=== PATIENT | female | born 1980 | race Caucasian/White ===

== ENCOUNTER 2021-01-02 12:20 | Emergency (ER) | payer OTHER ==
[~2021-01-02] VITALS: Ht 152.4 cm; Wt 108.9 kg
== END 2021-01-02 16:27 | disposition left against medical advice (07) ==
LOC: ED 12:20
DX: R50.9 Fever, unspecified (principal); Z53.21 Procedure and treatment not carried out due to patient leaving prior to being seen by health care provider

== ENCOUNTER 2021-01-04 06:55 | Inpatient (IN) | payer OTHER ==
[~2021-01-04] VITALS: Ht 152.4 cm; Wt 106.8 kg
[2021-01-04 06:59] VITALS: BP 119/66
[2021-01-04 07:24] LABS: BASO % 0.2 % (0.0-1.0); HEMATOCRIT 43.1 % (37.0-47.0); LYMPH # 0.8 10*3/uL (1.3-4.4); LYMPH % 12.2 % (27.0-41.0); MEAN CORPUSCULAR HGB 27.9 pg (27.0-31.0); MEAN CORPUSCULAR HGB CONC 33.2 g/dl (33.0-37.0); MEAN PLATELET VOLUME 10.4 fl (9.6-12.3); MONO # 0.3 10*3/uL (0.1-1.0); NEUT # 5.3 10*3/uL (2.3-7.9); NEUT % 82.3 % (47.0-73.0); PLATELET COUNT AUTOMATED 189 10*3/uL (130-400); RED BLOOD COUNT 5.13 10*6/uL (4.10-5.10); RED CELL DISTRI WIDTH 12.7 % (0-14.5); WHITE BLOOD COUNT 6.4 10*3/uL (4.8-10.8)
[2021-01-04 07:42] LABS: ACT PARTIAL THROMBO TIME 28.6 SECONDS (20.0-32.1); ALKALINE PHOSPHATASE 50 U/L (45-117); BUN 13 mg/dl (7-24); CHLORIDE 106 mmol/L (98-107); CREATININE 0.74 mg/dL (0.55-1.02); LIPASE 43 U/L (73-393); POTASSIUM 3.6 mmol/L (3.5-5.1); SGOT/AST 45 IU/L (3-35); SGPT/ALT 81 U/L (12-78); SODIUM 138 mmol/L (136-145); TOTAL PROTEIN 7.5 gm/dL (6.4-8.2)
[2021-01-04 07:52] LABS: BETA-HCG, QUANT < 1.0 mIU/mL (1-3); TROPONIN I < 0.015 ng/ml (<0.045)
[2021-01-04 10:05] VITALS: BP 100/60
[2021-01-04 14:04] VITALS: BP 144/79
[2021-01-04 21:06] VITALS: BP 100/64
[2021-01-04] MEDS ORDERED: SERTRALINE HYD100 MG PO (21:07)
[2021-01-04 23:00] VITALS: BP 120/57
[2021-01-05 07:17] LABS: ALBUMIN 2.6 gm/dl (3.1-4.5); ALKALINE PHOSPHATASE 48 U/L (45-117); BUN 15 mg/dl (7-24); CHLORIDE 110 mmol/L (98-107); CREATININE 0.64 mg/dL (0.55-1.02); LDH 285 U/L (84-246); POTASSIUM 3.9 mmol/L (3.5-5.1); SGOT/AST 34 IU/L (3-35); SGPT/ALT 71 U/L (12-78); SODIUM 140 mmol/L (136-145); TOTAL PROTEIN 7.1 gm/dL (6.4-8.2)
[2021-01-05 07:18] LABS: BASO % 0.2 % (0.0-1.0); HEMATOCRIT 44.3 % (37.0-47.0); LYMPH # 0.8 10*3/uL (1.3-4.4); LYMPH % 15.2 % (27.0-41.0); MEAN CORPUSCULAR HGB 27.9 pg (27.0-31.0); MEAN CORPUSCULAR HGB CONC 31.8 g/dl (33.0-37.0); MEAN PLATELET VOLUME 10.8 fl (9.6-12.3); MONO # 0.4 10*3/uL (0.1-1.0); MONO % 8.5 % (3.0-9.0); NEUT # 3.8 10*3/uL (2.3-7.9); NEUT % 75.3 % (47.0-73.0); PLATELET COUNT AUTOMATED 221 10*3/uL (130-400); RED BLOOD COUNT 5.06 10*6/uL (4.10-5.10); RED CELL DISTRI WIDTH 13.1 % (0-14.5); WHITE BLOOD COUNT 5.1 10*3/uL (4.8-10.8)
[2021-01-05 07:20] LABS: MEAN CELL VOLUME 87.5 fl (81.0-99.0)
[2021-01-05 08:00] VITALS: BP 119/61
[2021-01-05 12:00] VITALS: BP 129/73
[2021-01-05 12:15] LABS: ABG BASE EXCESS 2.4 mmol/L (-2.0-2.0); ARTERIAL BLOOD GAS PH 7.46 (7.35-7.45); ARTERIAL BLOOD GAS PO2 57.5 (80-90)
[2021-01-05 16:00] VITALS: BP 112/68
[2021-01-05 20:00] VITALS: BP 97/67
[2021-01-06] VITALS: BP 109/70; BP 120/49
[2021-01-06 04:00] VITALS: BP 104/69
[2021-01-06 06:14] LABS: BASO % 0.1 % (0.0-1.0); HEMATOCRIT 43.8 % (37.0-47.0); LYMPH # 1.4 10*3/uL (1.3-4.4); MEAN CELL VOLUME 87.4 fl (81.0-99.0); MEAN CORPUSCULAR HGB 27.9 pg (27.0-31.0); MEAN PLATELET VOLUME 10.5 fl (9.6-12.3); MONO # 0.8 10*3/uL (0.1-1.0); MONO % 7.1 % (3.0-9.0); NEUT # 9.5 10*3/uL (2.3-7.9); NEUT % 79.9 % (47.0-73.0); PLATELET COUNT AUTOMATED 258 10*3/uL (130-400); RED BLOOD COUNT 5.01 10*6/uL (4.10-5.10); WHITE BLOOD COUNT 11.9 10*3/uL (4.8-10.8)
[2021-01-06 06:44] LABS: ALBUMIN 2.6 gm/dl (3.1-4.5); ALKALINE PHOSPHATASE 48 U/L (45-117); BUN 15 mg/dl (7-24); CHLORIDE 109 mmol/L (98-107); CREATININE 0.52 mg/dL (0.55-1.02); POTASSIUM 3.8 mmol/L (3.5-5.1); SGOT/AST 29 IU/L (3-35); SGPT/ALT 62 U/L (12-78); SODIUM 140 mmol/L (136-145); TOTAL PROTEIN 7.2 gm/dL (6.4-8.2)
[2021-01-06 08:00] VITALS: BP 125/72
[2021-01-06 12:00] VITALS: BP 98/56
[2021-01-06 16:00] VITALS: BP 105/66
[2021-01-06 20:00] VITALS: BP 97/60
[2021-01-07] VITALS: BP 102/60
[2021-01-07 04:00] VITALS: BP 90/70
[2021-01-07 07:59] LABS: BASO % 0.1 % (0.0-1.0); HEMATOCRIT 42.6 % (37.0-47.0); LYMPH # 1.8 10*3/uL (1.3-4.4); LYMPH % 25.3 % (27.0-41.0); MEAN CELL VOLUME 87.5 fl (81.0-99.0); MEAN CORPUSCULAR HGB 27.7 pg (27.0-31.0); MEAN CORPUSCULAR HGB CONC 31.7 g/dl (33.0-37.0); MONO # 0.7 10*3/uL (0.1-1.0); MONO % 9.4 % (3.0-9.0); NEUT # 4.4 10*3/uL (2.3-7.9); NEUT % 63.5 % (47.0-73.0); PLATELET COUNT AUTOMATED 289 10*3/uL (130-400); RED BLOOD COUNT 4.87 10*6/uL (4.10-5.10); RED CELL DISTRI WIDTH 12.8 % (0-14.5); WHITE BLOOD COUNT 6.9 10*3/uL (4.8-10.8)
[2021-01-07 08:00] VITALS: BP 128/48
[2021-01-07 08:17] LABS: ALBUMIN 2.5 gm/dl (3.1-4.5); ALKALINE PHOSPHATASE 45 U/L (45-117); BUN 18 mg/dl (7-24); CHLORIDE 109 mmol/L (98-107); CREATININE 0.58 mg/dL (0.55-1.02); POTASSIUM 3.9 mmol/L (3.5-5.1); SGOT/AST 23 IU/L (3-35); SGPT/ALT 49 U/L (12-78); SODIUM 140 mmol/L (136-145); TOTAL PROTEIN 6.8 gm/dL (6.4-8.2)
[2021-01-07 12:00] VITALS: BP 86/53
[2021-01-07 17:40] VITALS: BP 99/48
[2021-01-07 20:00] VITALS: BP 101/61
[2021-01-08] VITALS: BP 97/60
[2021-01-08 04:00] VITALS: BP 94/58
[2021-01-08 06:10] LABS: BASO % 0.3 % (0.0-1.0); EOS % 0.1 % (1.0-4.0); HEMATOCRIT 42.9 % (37.0-47.0); LYMPH # 1.7 10*3/uL (1.3-4.4); LYMPH % 21.3 % (27.0-41.0); MEAN CELL VOLUME 86.8 fl (81.0-99.0); MEAN CORPUSCULAR HGB 27.9 pg (27.0-31.0); MEAN CORPUSCULAR HGB CONC 32.2 g/dl (33.0-37.0); MEAN PLATELET VOLUME 10.1 fl (9.6-12.3); MONO # 0.7 10*3/uL (0.1-1.0); MONO % 9.1 % (3.0-9.0); NEUT # 5.3 10*3/uL (2.3-7.9); NEUT % 66.6 % (47.0-73.0); PLATELET COUNT AUTOMATED 334 10*3/uL (130-400); RED BLOOD COUNT 4.94 10*6/uL (4.10-5.10); RED CELL DISTRI WIDTH 12.3 % (0-14.5); WHITE BLOOD COUNT 7.9 10*3/uL (4.8-10.8)
[2021-01-08 06:26] LABS: ALBUMIN 2.5 gm/dl (3.1-4.5); ALKALINE PHOSPHATASE 44 U/L (45-117); BUN 17 mg/dl (7-24); CHLORIDE 109 mmol/L (98-107); CREATININE 0.55 mg/dL (0.55-1.02); POTASSIUM 3.9 mmol/L (3.5-5.1); SGOT/AST 17 IU/L (3-35); SGPT/ALT 50 U/L (12-78); SODIUM 140 mmol/L (136-145); TOTAL PROTEIN 6.9 gm/dL (6.4-8.2)
[2021-01-08 08:00] VITALS: BP 93/54
[2021-01-08 12:00] VITALS: BP 83/47
[2021-01-08 16:00] VITALS: BP 86/64
[2021-01-08 20:00] VITALS: BP 102/71
[2021-01-09] VITALS: BP 95/51
[2021-01-09 06:09] LABS: ALBUMIN 2.6 gm/dl (3.1-4.5); ALKALINE PHOSPHATASE 43 U/L (45-117); BUN 16 mg/dl (7-24); CHLORIDE 108 mmol/L (98-107); CREATININE 0.69 mg/dL (0.55-1.02); SGOT/AST 16 IU/L (3-35); SGPT/ALT 45 U/L (12-78); SODIUM 139 mmol/L (136-145); TOTAL PROTEIN 6.8 gm/dL (6.4-8.2)
[2021-01-09 06:29] LABS: HEMATOCRIT 42.5 % (37.0-47.0); MEAN CELL VOLUME 86.4 fl (81.0-99.0); MEAN CORPUSCULAR HGB CONC 32.5 g/dl (33.0-37.0); MEAN PLATELET VOLUME 10.2 fl (9.6-12.3); PLATELET COUNT AUTOMATED 352 10*3/uL (130-400); RED BLOOD COUNT 4.92 10*6/uL (4.10-5.10); RED CELL DISTRI WIDTH 12.4 % (0-14.5); WHITE BLOOD COUNT 7.9 10*3/uL (4.8-10.8)
[2021-01-09 07:37] LABS: ATYPICAL LYMPHS 1 % (0-0); BASOPHILS 1 % (0-1); PLATELET SUFFICIENCY NORMAL (NORMAL); TOTAL CELLS COUNTED 100 #CELLS
[2021-01-09 08:00] VITALS: BP 96/58
[2021-01-09 12:00] VITALS: BP 95/59
[2021-01-09 16:00] VITALS: BP 106/58
[2021-01-09 20:00] VITALS: BP 101/60
[2021-01-10] VITALS: BP 104/70
[2021-01-10 06:14] LABS: HEMATOCRIT 43.1 % (37.0-47.0); MEAN CELL VOLUME 86.2 fl (81.0-99.0); MEAN CORPUSCULAR HGB 27.6 pg (27.0-31.0); MEAN PLATELET VOLUME 10.1 fl (9.6-12.3); PLATELET COUNT AUTOMATED 363 10*3/uL (130-400); RED CELL DISTRI WIDTH 12.4 % (0-14.5); WHITE BLOOD COUNT 9.2 10*3/uL (4.8-10.8)
[2021-01-10 06:19] LABS: ALBUMIN 2.7 gm/dl (3.1-4.5); BUN 16 mg/dl (7-24); CHLORIDE 108 mmol/L (98-107); POTASSIUM 4.2 mmol/L (3.5-5.1); SGOT/AST 20 IU/L (3-35); SGPT/ALT 45 U/L (12-78); SODIUM 140 mmol/L (136-145)
[2021-01-10 06:21] LABS: ALKALINE PHOSPHATASE 46 U/L (45-117); CREATININE 0.82 mg/dL (0.55-1.02)
[2021-01-10 06:53] LABS: TOTAL CELLS COUNTED 100 #CELLS
[2021-01-10 06:54] LABS: BURR CELLS FEW; PLATELET SUFFICIENCY NORMAL (NORMAL)
[2021-01-10 08:00] VITALS: BP 101/62
[2021-01-10 12:00] VITALS: BP 98/76
[2021-01-10 16:00] VITALS: BP 97/74
[2021-01-10 20:00] VITALS: BP 108/69
[2021-01-11] VITALS: BP 97/51
[2021-01-11 05:57] LABS: ALBUMIN 2.5 gm/dl (3.1-4.5); ALKALINE PHOSPHATASE 43 U/L (45-117); BUN 16 mg/dl (7-24); CHLORIDE 105 mmol/L (98-107); CREATININE 0.74 mg/dL (0.55-1.02); POTASSIUM 3.8 mmol/L (3.5-5.1); SGOT/AST 15 IU/L (3-35); SGPT/ALT 42 U/L (12-78); SODIUM 140 mmol/L (136-145); TOTAL PROTEIN 6.5 gm/dL (6.4-8.2)
[2021-01-11 06:17] LABS: HEMATOCRIT 39.9 % (37.0-47.0); MEAN CORPUSCULAR HGB CONC 32.6 g/dl (33.0-37.0); MEAN PLATELET VOLUME 10.4 fl (9.6-12.3); PLATELET COUNT AUTOMATED 332 10*3/uL (130-400); RED BLOOD COUNT 4.64 10*6/uL (4.10-5.10); RED CELL DISTRI WIDTH 12.4 % (0-14.5); WHITE BLOOD COUNT 8.5 10*3/uL (4.8-10.8)
[2021-01-11 06:50] LABS: TOTAL CELLS COUNTED 100 #CELLS
[2021-01-11 06:51] LABS: PLATELET SUFFICIENCY NORMAL (NORMAL)
[2021-01-11 06:53] LABS: ATYPICAL LYMPHS 2 % (0-0); BASOPHILS 2 % (0-1)
[2021-01-11 08:00] VITALS: BP 96/60
[2021-01-11] MEDS ORDERED: DECADRON6 M1 PO (11:30)
[2021-01-11 12:00] VITALS: BP 98/62
== END 2021-01-11 16:05 | disposition home health service (06) | DRG 871 ==
LOC: ED 06:55 → EDHOLD 12:13 → 4E 12:13 → ICCU 12:13 → EDHOLD 13:46 → 4E 22:26 → ICCU 01-05 12:15 → 4E 01-08 14:34
PROVIDERS: Emergency Medicine; Internal Medicine; Student in an Organized Health Care Education/Training Program; ADMIT Internal Medicine; ATTEND Internal Medicine
PROC: XW033E5 Introduction of Remdesivir Anti-infective into Peripheral Vein, Percutaneous Approach, New Technology Group 5 (ICD-10-PCS; principal; 2021-01-04)
PROC: 5A0935A Assistance with Respiratory Ventilation, Less than 24 Consecutive Hours, High Flow/Velocity Cannula (ICD-10-PCS; 2021-01-05)
PROC: 5A0935A Assistance with Respiratory Ventilation, Less than 24 Consecutive Hours, High Flow/Velocity Cannula (ICD-10-PCS; 2021-01-10)
DX: A41.9 Sepsis, unspecified organism (principal); J96.01 Acute respiratory failure with hypoxia; U07.1 COVID-19; J12.82 Pneumonia due to coronavirus disease 2019; E43 Unspecified severe protein-calorie malnutrition; Z68.41 Body mass index [BMI] 40.0-44.9, adult; R65.20 Severe sepsis without septic shock; R73.9 Hyperglycemia, unspecified; E83.41 Hypermagnesemia; R74.01 Elevation of levels of liver transaminase levels; E66.01 Morbid (severe) obesity due to excess calories; F32.9 Major depressive disorder, single episode, unspecified; Z79.899 Other long term (current) drug therapy

== ENCOUNTER 2024-04-30 06:54 | Emergency (ER) | payer OTHER ==
[~2024-04-30] VITALS: Ht 152.4 cm; Wt 61.0 kg
[~2024-04-30 06:54] MED LIST: DECADRON6 M1 PO; SERTRALINE HYD100 MG PO
[2024-04-30] MEDS ORDERED: METFORMIN HYDR500 MG PO (07:11)
[2024-04-30] MEDS ORDERED: ROSUVASTATIN CA10 MG PO (07:12)
[2024-04-30] MEDS ORDERED: Ketorolac Tromethamine 30 MG/ML VIAL IM ONE (08:00)
[2024-04-30] MEDS ORDERED: MELOXICAM15 MG PO (08:57)
== END 2024-04-30 09:04 | disposition home or self-care (01) ==
LOC: ED 06:54
DX: S00.03XA Contusion of scalp, initial encounter (principal); M54.2 Cervicalgia; R68.84 Jaw pain; Z79.899 Other long term (current) drug therapy; Z79.84 Long term (current) use of oral hypoglycemic drugs; Z90.49 Acquired absence of other specified parts of digestive tract; W00.0XXA Fall on same level due to ice and snow, initial encounter; Y93.89 Activity, other specified; Y92.69 Other specified industrial and construction area as the place of occurrence of the external cause; Y99.0 Civilian activity done for income or pay

== ENCOUNTER 2024-05-04 12:55 | Emergency (ER) | payer OTHER ==
[~2024-05-04] VITALS: Ht 152.4 cm; Wt 106.1 kg
[~2024-05-04 12:55] MED LIST changes: +MELOXICAM15 MG PO; +METFORMIN HYDR500 MG PO; +ROSUVASTATIN CA10 MG PO
[2024-05-04] MEDS ORDERED: Metoclopramide Hydrochloride 10 MG/2 ML VIAL IV ONE (14:25)
[2024-05-04] MEDS ORDERED: Ketorolac Tromethamine 30 MG/ML VIAL IV ONE (14:25)
[2024-05-04] MEDS ORDERED: SODIUM CHLORIDE 0.9% 1,000 ML IV ONE (14:25)
[2024-05-04] MEDS ORDERED: diphenhydrAMINE hydrochloride 50 MG/ML VIAL IV ONE (14:25)
[2024-05-04] MEDS ORDERED: NAPROSYN500 MG PO (15:30)
[2024-05-04] MEDS ORDERED: Dexamethasone Sodium Phospha 10 MG/1 ML VIAL IV ONE (15:35)
== END 2024-05-04 15:41 | disposition home or self-care (01) ==
LOC: ED 12:55
DX: R51.9 Headache, unspecified (principal); E83.41 Hypermagnesemia; F41.9 Anxiety disorder, unspecified; Z90.49 Acquired absence of other specified parts of digestive tract; Z98.890 Other specified postprocedural states